=== PATIENT | male | born 2005 | race Caucasian/White ===

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

== ENCOUNTER 2024-09-02 11:15 | Emergency (ER) | payer OTHER, MEDICARE ==
[2024-09-02 11:19] VITALS: PULSE 99; RESP 18; TEMP 98.1
[2024-09-02 11:45] VITALS: BP 134/119
--- NOTE | 2024-09-02 12:38 | ED ---
General Adult HPI - General Chief complaint: Altered Mental Status Stated complaint: abn labs Time Seen by Provider: 09/02/24 11:21 Source: family, RN notes reviewed Mode of arrival: ambulatory Limitations: language barrier, altered mental status - History of Present Illness Initial comments: This is a 19-year-old male who presents to the emergency department to get blood work done. Patient was getting outpatient labs done today and [facility] was unable to do it because the patient needed to be held down. He was subsequently sent to the emergency department for us to get lab work drawn. The difficulty with getting lab work done is related to the patient being autistic and nonverbal with intellectual disabilities. - Related Data Home Medications Medication Instructions Recorded Confirmed ARIPiprazole [Abilify Oral 8 mg PO HS 12/31/21 08/16/22 Solution] Acetaminophen Oral Susp [Tylenol] 650 mg PO Q4-6H PRN 08/16/22 08/16/22 Brivaracetam [Briviact] 200 mg PO BID 08/16/22 08/16/22 Enoxaparin [Lovenox] 80 mg SQ DAILY 08/16/22 08/16/22 Multivitamins, Thera Liquid 5 ml PO DAILY 08/16/22 08/16/22 [Theragran Liquid (formulary)] Topiramate [Eprontia] 100 mg PO BID 08/16/22 08/16/22 hydrOXYzine HCL [Atarax Oral Soln] 10 mg PO BID PRN 08/16/22 08/16/22 Allergies Allergy/AdvReac Type Severity Reaction Status Date / Time No Known Allergies Allergy Verified 08/16/22 12:59 Review of Systems ROS Statement: Those systems with pertinent positive or pertinent negative responses have been documented in the HPI. ROS Other: All systems not noted in ROS Statement are negative. Past Medical History Additional Past Medical History / Comment(s): Hx of pneumothorax with recent lobectomy, autism no verbal at baseline, Intelectual disability, seizures, incontience History of Any Multi-Drug Resistant Organisms: None Reported Additional Past Surgical History / Comment(s): partial lobectomy, ear tubes Past Psychological History: No Psychological Hx Reported Smoking Status: Never smoker Past Alcohol Use History: None Reported Past Drug Use History: None Reported - Past Family History Mother Family Medical History: No Reported History General Exam Limitations: physical limitation General appearance: alert, in no apparent distress Head exam: Present: atraumatic, normocephalic, normal inspection Respiratory exam: Present: normal lung sounds bilaterally. Absent: respiratory distress, wheezes, rales, rhonchi, stridor Cardiovascular Exam: Present: regular rate, normal rhythm, normal heart sounds. Absent: systolic murmur, diastolic murmur, rubs, gallop, clicks Neurological exam: Present: alert Skin exam: Present: warm, dry, intact, normal color. Absent: rash Course Vital Signs 09/02/24 09/02/24 11:16 11:45 Temperature 98.1 F Pulse Rate 99 Respiratory 18 Rate Blood Pressure 134/119 O2 Sat by Pulse 98 Oximetry Medical Decision Making - Medical Decision Making This is a 19-year-old male who presents to the emergency department for blood work. Was pt. sent in by a medical professional or institution? @ -No Did you speak to anyone other than the patient for history? @ -His parents provided all of the history Did you review nursing and triage notes? @ -Yes, and I agree, it is accurate with regards to the patient's symptoms. Were old charts reviewed? @ -No Differential Diagnosis? @ -Behavioral issue, CVA/TIA, tumor, infection, this is not meant to be an all- inclusive list. EKG interpreted by me (3pts min.)? @ -Not obtained X-rays interpreted by me (1pt min.)? @ -Not obtained CT interpreted by me (1pt min.)? @ -Not obtained U/S interpreted by me (1pt. min.)? @ -Not obtained What testing was considered but not performed? (CT, X-rays, U/S, labs)? Why? @ -None What meds were considered but not given? Why? @ -None Did you discuss the management of the patient with other professionals? @ -No Did you reconcile home meds? @ -No Was smoking cessation discussed for >3mins.? @ -No Was critical care preformed (if so, how long)? @ -No Were there social determinants of health that impacted care today? How? (Homelessness, low income, unemployed, alcoholism, drug addiction, transportation, low edu. Level, literacy, decrease access to med. care, [facility], rehab)? @ -No Was there de-escalation of care discussed even if they declined? (Discuss DNR or withdrawal of care, Hospice)? @ -No What co-morbidities impacted this encounter? (DM, HTN, Smoking, COPD, CAD, Cancer, CVA, Hep., AIDS, mental health diagnosis, sleep apnea, morbid obesity)? @ -Autism Was patient admitted / discharged? @ -Discharged. We were able to pull up the outpatient lab orders including a CBC, CMP, lipid panel, TSH, and hemoglobin A1c. Nursing staff called [facility] and they advised that they were able to use the outpatient lab order and have results subsequently sent directly to the ordering provider. Staff members were able to assist and hold down the patient to successfully obtain blood work and the patient was discharged home in stable condition. Case discussed with ED attending Dr. Solis. Return precautions reviewed in depth, the patient is instructed to return to the emergency department with any new, worsening, or concerning symptoms. Patient's parents verbalized understanding. Undiagnosed new problem with uncertain prognosis? @ -None Drug Therapy requiring intensive monitoring for toxicity (Heparin, Nitro, Insulin, Cardizem)? @ -None Were any procedures done? @ -None Diagnosis/symptom? @ -Encounter for laboratory test Acute, or Chronic, or Acute on Chronic? @ -Acute Uncomplicated (without systemic symptoms) or Complicated (systemic symptoms)? @ -Uncomplicated Side effects of treatment? @ -None Exacerbation, Progression, or Severe Exacerbation] @ -Not applicable Poses a threat to life or bodily function? @ -No Disposition Clinical Impression: Encounter for laboratory test, Autism Disposition: HOME SELF-CARE Additional Instructions: Return to the emergency department with any new, worsening, or concerning symptoms. Follow up with your primary care provider in 1-2 days. Is patient prescribed a controlled substance at d/c from ED?: No Referrals: Seven Andujar MD [Primary Care Provider] - 1-2 days Time of Disposition: 12:35
== END 2024-09-02 12:40 | disposition home or self-care (01) ==
LOC: EC 11:15
DX: F84.0 Autistic disorder (principal); Z01.812 Encounter for preprocedural laboratory examination
CPT/HCPCS: 99284

== ENCOUNTER → 2024-09-02 | Outpatient (CLI) | payer OTHER, MEDICARE ==
[2024-09-02 15:31] LABS: Chol/HDL Ratio 3.58 Ratio; LDL Cholesterol,Calculated 70.8 mg/dL (0.0-131.0)
[2024-09-02 15:32] LABS: Basophils # (A) 0.06 X 10*3/uL (0.00-0.10); Basophils % (A) 0.5 %; Eosinophils # (A) 0.24 X 10*3/uL (0.04-0.35); Eosinophils % (A) 2.1 %; HCT 48.7 % (39.6-50.0); HGB 16.7 g/dL (13.0-17.0); Lymphocytes # (A) 4.92 X 10*3/uL (0.90-5.00); Lymphocytes % (A) 42.6 %; MCH 30.4 pg (27.0-32.0); MCHC 34.3 g/dL (32.0-37.0); MCV 88.5 FL (80.0-97.0); Mean Platelet Volume 10.2 FL (9.5-12.2); Monocytes # (A) 0.86 X 10*3/uL (0.20-1.00); Monocytes % (A) 7.4 %; NRBC Per 100 WBC 0 X 10*3/uL (0.00-0.01); Neutrophils # (A) 5.45 X 10*3/uL (1.80-7.70); Neutrophils % (A) 47.1 %; Platelet Count 302 X 10*3/uL (140-440); RDW 12.2 % (11.5-14.5); WBC 11.56 X 10*3/uL (4.50-10.00)
[2024-09-02 15:33] LABS: ALT 24 U/L (10-49); AST 30 U/L (14-35); Albumin 4.9 g/dL (3.8-4.9); Albumin/Globulin Ratio 1.75 Ratio (1.60-3.17); Alkaline Phosphatase 80 U/L (41-126); BUN/Creat Ratio 14.82 Ratio (12.00-20.00); Blood Urea Nitrogen 16.3 mg/dL (9.0-27.0); Calcium 9.8 mg/dL (8.7-10.3); Chloride 108 mmol/L (96-109); Globulin 2.8 g/dL (1.6-3.3); Glucose 81 mg/dL (70-110); Potassium 4.7 mmol/L (3.5-5.5); Sodium 144 mmol/L (135-145); Total Bilirubin 0.4 mg/dL (0.3-1.2); Total Protein 7.7 g/dL (6.2-8.2)
== END | disposition home or self-care (01) ==
LOC: LABWHC1 10:30
PROVIDERS: ATTEND Family Medicine
DX: Z00.00 Encounter for general adult medical examination without abnormal findings (principal); Z13.1 Encounter for screening for diabetes mellitus; Z13.220 Encounter for screening for lipoid disorders
CPT/HCPCS: 36415; 80053; 80061; 83036; 84443; 85025

== ENCOUNTER 2024-12-19 07:37 | Day surgery (SDC) | payer MEDICARE, OTHER ==
[~2024-12-19 07:37] MED LIST changes: +DEXAMETHASONE SOD PHOSPHATE 4 MG/ML 1 ML VIAL IV ONE; +HYDROmorphone 0.5 MG/0.5 ML SYRINGE IVP PRN; +LACTATED RINGERS 1,000 ML IV SCH; -MIDAZOLAM ORAL SYRUP 10 MG/5 ML CUP PO ONE; +ONDANSETRON 4 MG/2 ML VIAL IVP ONE
[2024-12-19] MEDS: MIDAZOLAM ORAL SYRUP 10 MG/5 ML CUP PO ONE (07:56)
[2024-12-19] MEDS ORDERED: MIDAZOLAM 2 MG/2 ML VIAL ONE (09:17)
[2024-12-19] MEDS ORDERED: SUCCINYLCHOLINE CHLORIDE 200 MG/10 ML VIAL IV ONE (09:17)
[2024-12-19] MEDS ORDERED: fentaNYL (PF) 50 MCG/ML 2 ML AMP ONE (09:17)
[2024-12-19] MEDS ORDERED: PROPOFOL 10 MG/ML 20 ML VIAL IV ONE (09:17)
[2024-12-19] MEDS ORDERED: PHENYLEPHRINE 10 MG/ML VIAL ONE (09:17)
[2024-12-19] MEDS ORDERED: ePHEDrine 50 MG/ML 1 ML VIAL ONE (09:17)
[2024-12-19] MEDS: LACTATED RINGERS 1,000 ML IV ONE (09:23)
--- NOTE | 2024-12-19 11:08 | P.GSCN ---
History of Present Illness Consult date: 12/19/24 Reason for Consult: Pt presented with pain on Lower Left for months, but could not get in [facility] even after several referral letters were sent. -4BWS -2 1 PA #19, #8 Mom states #8 had some sort of swelling and went away after taking Augmentin. -periodic exam -#8 has RCT already and no sign on infection -#7 F, MLF -#8 F -#10 MLFI -#14 Do all resins shade A3, glass ionomer base for #14 and used Bulk there. -#19 Root Extraction, tooth was broken and severely decayed, had to split in half and remove each root separately. -#29 DO resin Filteck Bulk shade A3. Post op instructions given to parents. -Prophy Past Medical History Past Medical History: Seizure Disorder Additional Past Medical History / Comment(s): Hx of pneumothorax with rt lobectomy 2021, autism non verbal at baseline, Intellectual disability, seizures last 10 yrs ago, incontience -briefs, constipation. scoliosis History of Any Multi-Drug Resistant Organisms: MRSA Year Discovered:: 2023 MDRO Source:: skin Additional Past Surgical History / Comment(s): partial lobectomy, ear tubes, dental procedures Past Anesthesia/Blood Transfusion Reactions: Postoperative Nausea & Vomiting (PONV) Additional Past Anesthesia/Blood Transfusion Reaction / Comm: slow to come out of anesthesia Smoking Status: Never smoker - Past Family History Mother Family Medical History: Diabetes Mellitus Medications and Allergies Home Medications Medication Instructions Recorded Confirmed Type ARIPiprazole [Abilify Oral 8 mg PO HS 12/31/21 12/19/24 History Solution] Acetaminophen Oral Susp [Tylenol] 320 mg PO DIRECTED PRN 08/16/22 12/19/24 History Brivaracetam [Briviact] 25 mg PO BID 08/16/22 12/19/24 History Topiramate [Eprontia] 62.5 mg PO BID 08/16/22 12/19/24 History Ibuprofen Oral Susp [Motrin Oral 40 mg PO DIRECTED PRN 12/14/24 12/19/24 History Susp] Multi Vitamin Gummie 1 tab PO MOWEFR 12/14/24 12/19/24 History polyethylene glycoL 3350 [Miralax] 17 gm PO DIRECTED PRN 12/14/24 12/19/24 History Allergies Allergy/AdvReac Type Severity Reaction Status Date / Time No Known Allergies Allergy Verified 12/19/24 07:38
[2024-12-19 13:02] VITALS: BP 112/72; PULSE 80; RESP 16
== END 2024-12-19 13:27 | disposition home or self-care (01) ==
LOC: OR 07:37
PROVIDERS: ATTEND Dentist
DX: K02.9 Dental caries, unspecified (principal); S02.5XXA Fracture of tooth (traumatic), initial encounter for closed fracture; X58.XXXA Exposure to other specified factors, initial encounter; G40.909 Epilepsy, unspecified, not intractable, without status epilepticus; F84.0 Autistic disorder; F79 Unspecified intellectual disabilities; R32 Unspecified urinary incontinence; K59.00 Constipation, unspecified; M41.9 Scoliosis, unspecified; Z79.899 Other long term (current) drug therapy; Z90.2 Acquired absence of lung [part of]
CPT/HCPCS: 41899; J2250; J0330; J3010; J2704; J2371